=== PATIENT | female | born 1950 | race Two or more races ===

== ENCOUNTER 2020-09-04 13:51 | Emergency (ER) | payer OTHER ==
[~2020-09-04] VITALS: Ht 152.4 cm; Wt 74.9 kg
--- NOTE | 2020-09-04 14:05 | NUR ---
SON WITH PT TO TRANSLATE. GNOSTICISM
--- NOTE | 2020-09-04 14:18 | NUR ---
BREAK RN: THIS IS A 70 YO F W/ C/O FAST HR, PALPITATIONS, NERVOUSNESS/ANXIETY STARTING TODAY. PT REPORTS 3RD EPISODE THIS MONTH. PT DENIES MEDICAL HX/HOME MEDS. PT RESTING ON GURNEY W/ CALL LIGHT IN REACH, SIDE RAILS UPX2. VSS, REINAN. AWAITING ED EVAL.
[2020-09-04 15:12] LABS: BASOPHILS % (AUTO) 1 % (0-1); EOSINOPHILS % (AUTO) 3 % (1-7); LYMPHOCYTES % (AUTO) 26 % (22-44); MEAN CORPUSCULAR HEMOGLOBIN 31.8 pg (27.0-34.8); MEAN PLATELET VOLUME 8.3 fL (7.4-10.4); MONOCYTES % (AUTO) 7 % (2-9); NEUTROPHILS % (AUTO) 64 % (42-75); PLATELET COUNT 251 x10^3/uL (130-400); RED BLOOD COUNT 4.32 x10^6/uL (3.82-5.3); RED CELL DISTRIBUTION WIDTH 15.2 % (9.6-15.2)
[2020-09-04 15:15] LABS: MD NO
[2020-09-04 15:21] LABS: ALBUMIN 3.7 g/dL (3.4-5.0); ANION GAP 6 mmol/L (5-15); CALCIUM 8.7 mg/dL (8.5-10.1); CHLORIDE 111 mmol/L (98-107); CREATININE 0.66 mg/dL (0.55-1.02)
[2020-09-04 15:31] LABS: TROPONIN I < 0.015 ng/mL (0.000-0.045)
[2020-09-04 15:33] LABS: MICROSCOPIC NOT IND
[2020-09-04 17:14] VITALS: BP 144/73
--- NOTE | 2020-09-04 18:11 | NUR ---
PT REC'VD EDUCATION AND INSTRUCTIONS. PT SON TRANSLATED INSTRUCTIONS. PT HAD NO FURTHER QUESTIONS. PT AMBULTED TO DC AREA, STEADY GAIT.
== END 2020-09-04 18:13 | disposition home or self-care (01) ==
LOC: ED 17:50
DX: F41.1 Generalized anxiety disorder (principal); R00.2 Palpitations; R42 Dizziness and giddiness; R53.1 Weakness
CPT/HCPCS: 36415; 80048; 81003; 82040; 84439; 84443; 84484; 85025; 93005; 99284